=== PATIENT | female | born 1945 | race Two or more races ===

== ENCOUNTER → 2016-08-18 | Outpatient (REF) | payer OTHER ==
[2016-08-19 11:17] LABS: ALBUMIN 3.8 GM/DL (3.2-5.2); ALBUMIN/GLOBULIN RATIO 1.03 (1.00-1.93); ALKALINE PHOSPHATASE 76 U/L (45-117); ALT/SGPT 28 U/L (12-78); AMYLASE 48 U/L (25-115); ANION GAP 9 MEQ/L (8-16); AST/SGOT 21 U/L (15-37); BILIRUBIN,TOTAL 0.5 MG/DL (0.2-1.0); BLOOD UREA NITROGEN 15 MG/DL (7-18); CALCIUM LEVEL 9.2 MG/DL (8.8-10.2); CARBON DIOXIDE LEVEL 29 MEQ/L (21-32); CHLORIDE LEVEL 104 MEQ/L (98-107); CREATININE FOR GFR 1.33 MG/DL (0.55-1.02); GLOMERULAR FILTRATION RATE 42.1 (>45); GLUCOSE, FASTING 77 MG/DL (80-110); POTASSIUM SERUM 4.6 MEQ/L (3.5-5.1); SODIUM LEVEL 142 MEQ/L (136-145); TOTAL PROTEIN 7.5 GM/DL (6.4-8.2)
[2016-08-19 12:23] LABS: CONTROL LINE HPYORI INT CTR LINE PRESENT
== END ==
LOC: M SFHCLERA 15:15
PROVIDERS: ATTEND Family Medicine
DX: K29.50 Unspecified chronic gastritis without bleeding (principal)
CPT/HCPCS: 80053; 82150; 83690; 86677; G0463

== ENCOUNTER → 2016-10-21 | Outpatient (CLI) | payer OTHER ==
--- NOTE | 2016-10-28 17:06 | REPMRS ---
Patient History The patient states she has not had a clinical breast exam in over a year. Family history of breast cancer in niece and colorectal cancer in niece. Benign right breast bx 1 year ago File area calling for out of states priors Digital Mammo Screening Bilat: October 21, 2016 - Exam #: [id number] Bilateral CC and MLO view(s) were taken. Technologist: Estrellita Kiser, Technologist Prior study comparison: January 29, 2016, right breast diagnostic unilateral mammo, performed at [facility]. FINDINGS: There are scattered fibroglandular densities. There has been no change in the appearance of the mammogram from the prior studies. There is a needle biopsy marker clip in the right breast. There is a mild amount of scattered fibroglandular density which is fairly symmetric. There is no interval development of dominant mass, architectural distortion, or clustered microcalcification suggestive of malignancy. ASSESSMENT: BI-RADS/ACR category 1 mammogram. Negative. Recommendation Routine screening mammogram in 1 year (for women over age 40). This mammogram was interpreted with the aid of an FDA-approved computer-aided dectection system. Electronically Signed By: Stan Mcgregor MD 10/28/16 [id number]
== END ==
LOC: M RAD 13:59
PROVIDERS: ATTEND Family Medicine
DX: Z12.31 Encounter for screening mammogram for malignant neoplasm of breast (principal)

== ENCOUNTER 2016-12-08 20:56 | Emergency (ER) | payer OTHER ==
[~2016-12-08] VITALS: Ht 157.5 cm; Wt 82.6 kg
[2016-12-08] MEDS ORDERED: IBUP-1114 PO (21:07)
[2016-12-08] MEDS ORDERED: ENAL10TA2 PO (21:07)
[2016-12-08] MEDS ORDERED: TRAM50TA2 PO (21:07)
[2016-12-08] MEDS ORDERED: PANT40TA2 PO (21:07)
[2016-12-08] MEDS ORDERED: ATOR40TA PO (21:07)
[2016-12-08] MEDS ORDERED: TRAZ50TA4 PO (21:07)
[2016-12-08] MEDS ORDERED: guaiFENesin SYRUP 200 MG/10 ML UDC PO ONE (22:45)
[2016-12-08] MEDS ORDERED: GUAI100S7 PO (22:54)
[2016-12-08] MEDS ORDERED: AMOX875T PO (22:56)
[2016-12-08 23:14] VITALS: BP 135/71
--- NOTE | 2016-12-09 08:05 | REP ---
Clinical: Productive cough . Comparison: None . Technique: PA and lateral. Findings: The mediastinum and cardiac silhouette are normal. The lung oneill are clear and without acute consolidation, effusion, or pneumothorax. The skeletal structures are intact and normal. Impression: 1. No acute cardiopulmonary process. Signed by Emanuel Sims MD 12/09/2016 07:57 A
== END 2016-12-08 23:20 | disposition home or self-care (01) ==
LOC: M ED 21:53
DX: J06.9 Acute upper respiratory infection, unspecified (principal); H66.91 Otitis media, unspecified, right ear; I10 Essential (primary) hypertension; E78.00 Pure hypercholesterolemia, unspecified; Z79.899 Other long term (current) drug therapy; Z88.5 Allergy status to narcotic agent